=== PATIENT | male | born 1990 | race Two or more races ===

== ENCOUNTER 2017-01-11 01:21 | Emergency (ER) | payer OTHER ==
[~2017-01-11] VITALS: Ht 165.1 cm; Wt 79.4 kg
[2017-01-11 02:41] VITALS: BP 145/99
[2017-01-11] MEDS ORDERED: SULF5DRO OD (02:57)
--- NOTE | 2017-01-11 02:57 | PHYS DOC ---
Past Medical History Past Medical History: No Pertinent History Past Surgical History: No Surgical History Alcohol Use: None Drug Use: None Adult General Chief Complaint Chief Complaint: EYE PROBLEMS HPI HPI Patient is a 26 year old [f__sex] who presents with [] Review of Systems Review of Systems Constitutional: Denies fever or chills [] Eyes: Denies change in visual acuity, redness, or eye pain [] HENT: Denies nasal congestion or sore throat [] Respiratory: Denies cough or shortness of breath [] Cardiovascular: No additional information not addressed in HPI [] GI: Denies abdominal pain, nausea, vomiting, bloody stools or diarrhea [] : Denies dysuria or hematuria [] Musculoskeletal: Denies back pain or joint pain [] Integument: Denies rash or skin lesions [] Neurologic: Denies headache, focal weakness or sensory changes [] Endocrine: Denies polyuria or polydipsia [] Allergies Allergies Allergies Coded Allergies Type Severity Reaction Last Updated Verified No Known Drug Allergies 01/11/17 No Physical Exam Physical Exam Constitutional: Well developed, well nourished, no acute distress, non-toxic appearance. [] HENT: Normocephalic, atraumatic, bilateral external ears normal, oropharynx moist, no oral exudates, nose normal. [] Eyes: PERRLA, EOMI, conjunctiva normal, no discharge. [] Neck: Normal range of motion, no tenderness, supple, no stridor. [] Cardiovascular:Heart rate regular rhythm, no murmur [] Lungs & Thorax: Bilateral breath sounds clear to auscultation [] Abdomen: Bowel sounds normal, soft, no tenderness, no masses, no pulsatile masses. [] Skin: Warm, dry, no erythema, no rash. [] Back: No tenderness, no CVA tenderness. [] Extremities: No tenderness, no cyanosis, no clubbing, ROM intact, no edema. [] Neurologic: Alert and oriented X 3, normal motor function, normal sensory function, no focal deficits noted. [] Psychologic: Affect normal, judgement normal, mood normal. [] Current Patient Data Vital Signs Vital Signs Date Time Temp Pulse Resp B/P (MAP) Pulse Ox O2 Delivery O2 Flow Rate FiO2 01/11/17 02:41 98.6 63 16 99 Room Air 98.6 EKG EKG [] Radiology/Procedures Radiology/Procedures [] Course & Med Decision Making Course & Med Decision Making Pertinent Labs and Imaging studies reviewed. (See chart for details) [] Dragon Disclaimer Dragon Disclaimer This electronic medical record was generated, in whole or in part, using a voice recognition dictation system. Departure Departure Impression: Primary Impression: Subconjunctival hemorrhage Additional Impression: Lipoma Disposition: HOME, SELF-CARE Condition: IMPROVED Referrals: NO PCP (PCP) Patient Instructions: Lipoma, Subconjunctival Hemorrhage Scripts Sulfacetamide Sodium (BLEPH-10) 5 Ml Drops 2 DROP OD TID for 5 Days, #5 ML Prov: MERRY ELDER MD 01/11/17 Problem Qualifiers Primary Impression: Subconjunctival hemorrhage Laterality: right Qualified Codes: H11.31 - Conjunctival hemorrhage, right eye Additional Impression: Lipoma Lipoma location: trunk Qualified Codes: D17.1 - Benign lipomatous neoplasm of skin and subcutaneous tissue of trunk MERRY ELDER MD Jan 11, 2017 02:57
== END 2017-01-11 03:09 | disposition home or self-care (01) ==
LOC: ER 01:21
DX: H11.31 Conjunctival hemorrhage, right eye (principal); D17.1 Benign lipomatous neoplasm of skin and subcutaneous tissue of trunk
CPT/HCPCS: 99283